=== PATIENT | male | born 1965 | race Caucasian/White ===

== ENCOUNTER 2017-11-07 08:01 | Inpatient (IN) | payer OTHER ==
[~2017-11-07] VITALS: Ht 185.4 cm; Wt 101.0 kg
[2017-11-07] MEDS ORDERED: ACETAMINOPHEN 500 MG TABLET ONE (08:28)
[2017-11-07] MEDS ORDERED: SODIUM CHLORIDE FLUSH 10ML SYR IVF ONE (08:30)
[2017-11-07] MEDS ORDERED: ACETAMINOPHEN 325 MG TABLET PO ONE (08:30)
[2017-11-07] MEDS ORDERED: SODIUM CHLORIDE 0.9% 1,000ML IVBOLUS ONE ×2 (08:30→10:00)
[2017-11-07 08:50] LABS: RAPID INFLUENZA A POSITIVE (Negative); RAPID INFLUENZA B Negative (Negative)
[2017-11-07 09:05] LABS: BASOPHILS # (AUTO) 0.01 x10^3/uL (0-0.1); BASOPHILS % (AUTO) 0 % (0-1); EOSINOPHILS # (AUTO) 0.02 x10^3/uL (0-0.4); EOSINOPHILS % (AUTO) 0 % (1-7); LYMPHOCYTES # (AUTO) 0.42 x10^3/uL (1-3.4); LYMPHOCYTES % (AUTO) 5 % (22-44); MD NO; MEAN CORPUSCULAR HEMOGLOBIN 31.3 pg (27.5-34.5); MEAN CORPUSCULAR HGB CONC 34.1 g/dL (33.2-36.2); MEAN CORPUSCULAR VOLUME 91.7 fL (81-97); MEAN PLATELET VOLUME 8.1 fL (7.4-10.4); MONOCYTES # (AUTO) 1.12 x10^3/uL (0.2-0.8); MONOCYTES % (AUTO) 12 % (2-9); NEUTROPHILS # (AUTO) 7.57 x10^3/uL (1.8-6.8); NEUTROPHILS % (AUTO) 83 % (42-75); PLATELET COUNT 287 x10^3/uL (130-400); RED BLOOD COUNT 5.38 x10^6/uL (4.38-5.82); RED CELL DISTRIBUTION WIDTH 12.5 % (9.4-14.8)
[2017-11-07 09:11] LABS: MICROSCOPIC INDICATED
[2017-11-07 09:15] LABS: ALBUMIN 4.3 g/dL (3.4-5.0); ANION GAP 7 mmol/L (5-15); CALCIUM 9.2 mg/dL (8.5-10.1); CHLORIDE 102 mmol/L (98-107); CREATININE 1.42 mg/dL (0.7-1.3)
[2017-11-07 09:20] LABS: CULTURE INDICATED? NO
[2017-11-07] MEDS ORDERED: IBUPROFEN 200 MG TABLET ONE (09:52)
[2017-11-07] MEDS ORDERED: CEFTRIAXONE PMX 1GM/50ML 50 ML IV ONE (10:00)
[2017-11-07] MEDS ORDERED: IBUPROFEN 200 MG TABLET PO ONE (10:00)
[2017-11-07] MEDS ORDERED: CEFTRIAXONE PMX 1GM/50ML 50 ML ONE (10:21)
[2017-11-07] MEDS ORDERED: AZITHROMYCIN 500 MG in SODIUM CHLORIDE 0.9% 250 ML IV ONE (10:30)
[2017-11-07] MEDS ORDERED: ONDANSETRON 2MG/ML, 2ML IVPush PRN (11:00)
[2017-11-07] MEDS ORDERED: ACETAMINOPHEN 325 MG TABLET PO PRN (11:00)
[2017-11-07] MEDS ORDERED: IBUPROFEN 200 MG TABLET PO PRN (13:30)
[2017-11-07] MEDS: LACTATED RINGERS 1,000 ML IV SCH (18:28)
[2017-11-07] MEDS: OSELTAMIVIR 75 MG CAPSULE PO SCH (18:28)
[2017-11-07] MEDS: GUAIFENESIN/DM 200-20MG, 10ML UDC PO PRN (18:34)
[2017-11-07 20:18] VITALS: BP 133/80
[2017-11-08 00:51] VITALS: BP 120/76
[2017-11-08] MEDS: LACTATED RINGERS 1,000 ML IV SCH ×3 (02:07→19:38)
[2017-11-08 07:32] VITALS: BP 135/74
[2017-11-08] MEDS: CEFTRIAXONE 2,000 MG in SODIUM CHLORIDE 0.9% 50 ML IV SCH (09:36)
[2017-11-08] MEDS: OSELTAMIVIR 75 MG CAPSULE PO SCH ×2 (09:36→19:37)
[2017-11-08] MEDS ORDERED: CEFTRIAXONE PMX 2GM/50ML 50 ML IV SCH (10:00)
[2017-11-08] MEDS: AZITHROMYCIN 500 MG in SODIUM CHLORIDE 0.9% 250 ML IV SCH (10:40)
[2017-11-08 13:18] VITALS: BP 131/81
[2017-11-08 14:18] LABS: CLOSTRIDIUM DIFFICILE ANTIGEN NEGATIVE; CLOSTRIDIUM DIFFICILE TOXIN NEGATIVE (Negative)
[2017-11-08] MEDS: GUAIFENESIN/DM 200-20MG, 10ML UDC PO PRN (17:39)
[2017-11-08 20:15] VITALS: BP 133/78
[2017-11-09 02:00] VITALS: BP 126/73
[2017-11-09] MEDS ORDERED: OSEL75CA PO (06:24)
[2017-11-09] MEDS ORDERED: AZIT500T5 PO (06:24)
[2017-11-09] MEDS ORDERED: ACET325T14 PO (06:24)
[2017-11-09] MEDS ORDERED: CEFD300C37 PO (06:24)
[2017-11-09] MEDS ORDERED: GUAI5SYR PO (06:24)
[2017-11-09 07:18] VITALS: BP 133/83
[2017-11-09 07:33] LABS: CREATININE 0.89 mg/dL (0.7-1.3)
[2017-11-09] MEDS: OSELTAMIVIR 75 MG CAPSULE PO SCH (07:57)
[2017-11-09] MEDS: LACTATED RINGERS 1,000 ML IV SCH (08:57)
[2017-11-09] MEDS: CEFTRIAXONE 2,000 MG in SODIUM CHLORIDE 0.9% 50 ML IV SCH (10:15)
[2017-11-09] MEDS: AZITHROMYCIN 500 MG in SODIUM CHLORIDE 0.9% 250 ML IV SCH (10:39)
[2017-11-09] MEDS: GUAIFENESIN/DM 200-20MG, 10ML UDC PO PRN (11:06)
[2017-11-09 12:10] VITALS: BP 121/80
== END 2017-11-09 12:44 | disposition home or self-care (01) | DRG 195 ==
LOC: ED 09:25 → EDIP 09:52 → 3NE 12:13
PROVIDERS: ADMIT Internal Medicine; ATTEND Internal Medicine
DX: J10.08 Influenza due to other identified influenza virus with other specified pneumonia (principal); J15.9 Unspecified bacterial pneumonia
CPT/HCPCS: 36415; 71046; 80048; 81001; 82040; 82565; 83605; 84145; 85025; 87040; 87324; 87400; 93005; 96361; 96365; 96367; J0456; J0696; J7030; J7050; J7120